=== PATIENT | female | born 1940 | race Caucasian/White ===

== ENCOUNTER → 2023-11-04 | Outpatient (CLI) | payer OTHER ==
[2023-11-05 12:00] LABS: Candida species (DNA Probe) Negative (NEGATIVE); G. vaginalis (DNA Probe) Negative (NEGATIVE); T. vaginalis (DNA Probe) Negative (NEGATIVE)
== END | disposition home or self-care (01) ==
LOC: LAB SHORT 17:23 → LAB 17:23
PROVIDERS: Obstetrics & Gynecology
DX: N89.8 Other specified noninflammatory disorders of vagina (principal)
CPT/HCPCS: 87480; 87510; 87660

== ENCOUNTER 2025-10-05 10:00 | Day surgery (SDC) | payer OTHER ==
[~2025-10-05] VITALS: Ht 165.1 cm; Wt 63.1 kg
[~2025-10-05 10:00] MED LIST: Balanced Salt Epinephrine Irrigation Solution 500 mL IR SCH; Moxifloxacin HCL 0.5 MG/0.1 ML 0.4MLSYR RIGHTEYE SCH; NS 500 ML IV ONE; PHENYLEPHRINE\\TROPICAMIDE\\TETRACAINE OPHTHALMIC DILATING SOLN RIGHTEYE PRN; Povidone-Iodine 450 DROP/30 ML Solution ONE; Povidone-Iodine 450 DROP/30 ML Solution RIGHTEYE SCH; Tetracaine HCl/Pf 0.5% Opth Soln 4 ml ONE; Triamcinolone Inj Susp 40 MG / ML 1ML Vial INJ SCH; Triamcinolone Inj Susp 40 MG / ML 1ML Vial ONE
[2025-10-05] MEDS ORDERED: LISI5 PO (10:42)
[2025-10-05] MEDS ORDERED: ATORVASTATIN CA20 MG PO (10:43)
[2025-10-05] MEDS ORDERED: Aspir 8181 MG PO (10:43)
[2025-10-05] MEDS ORDERED: OMEP20ER PO (10:43)
[2025-10-05] MEDS ORDERED: IRON18 M1 PO (10:44)
--- NOTE | 2025-10-05 11:05 | NUR ---
10/05/25 1105 Mignon Wei 123/62 63 100% 16 VSS
[2025-10-05 13:09] VITALS: BP 137/64
== END 2025-10-05 11:35 | disposition home or self-care (01) ==
LOC: ORSCSDS 10:00
PROVIDERS: Ophthalmology
PROC: 08RJ3JZ Replacement of Right Lens with Synthetic Substitute, Percutaneous Approach (ICD-10-PCS; principal; 2025-10-05 11:30)
DX: H25.811 Combined forms of age-related cataract, right eye (principal); H21.81 Floppy iris syndrome; Z79.82 Long term (current) use of aspirin; Z79.899 Other long term (current) drug therapy
CPT/HCPCS: A9270; J3301; J7040; V2632